=== PATIENT | male | born 1960 | race Caucasian/White ===

== ENCOUNTER 2016-11-26 23:28 | Emergency (ER) | payer OTHER ==
[2016-11-26 23:53] VITALS: BMI 29.8
[2016-11-27] MEDS ORDERED: IBUPROFEN 400 MG TABLET (FP) PO ONE ×2 (01:47→02:43)
[2016-11-27] MEDS ORDERED: OXYCODONE/APAP 5/325MG COMBO TABLET PO ONE ×2 (01:47→18:42)
[2016-11-27 02:50] LABS: MCH 29.2 pg (25.7-33.7); MCHC 34.3 g/dl (32.0-35.9); MEAN CELL VOLUME 85.1 fl (80-96); MEAN PLT VOLUME 8.3 fl (7.5-11.1); PLATELET COUNT 221 K/MM3 (134-434); RDW 13.6 % (11.9-15.9); WHITE BLOOD COUNT 6.2 K/mm3 (4.0-10.0)
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
[2016-11-27 03:30] LABS: URINE APPEARANCE CLEAR; URINE BILIRUBIN NEGATIVE (NEGATIVE); URINE COLOR YELLOW; URINE GLUCOSE (UA) NEGATIVE (NEGATIVE); URINE KETONE NEGATIVE (NEGATIVE); URINE LEUK ESTERASE NEGATIVE (NEGATIVE); URINE NITRITE NEGATIVE (NEGATIVE); URINE PROTEIN NEGATIVE (NEGATIVE); URINE UROBILINOGEN NEGATIVE E.U./dl (0.2-1.0)
[2016-11-27 03:55] LABS: URINE BLOOD 1+ (NEGATIVE)
[2016-11-27 04:08] LABS: URINE HYALINE CAST 1 /lpf; URINE MUCUS RARE; URINE RBC 5 /hpf (0-3); URINE WBC 1 /hpf (3-5)
[2016-11-27 04:15] LABS: CALCIUM 8.9 mg/dL (8.5-10.1); CREATININE 1.2 mg/dL (0.7-1.3)
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
[2016-11-27] MEDS ORDERED: morphine CARPU-JECT 4 MG/1 ML DISP.SYRIN IVPUSH ONE (09:25)
[2016-11-27] MEDS ORDERED: morphine CARPU-JECT 4 MG/1 ML DISP.SYRIN ONE (09:34)
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
[2016-11-27 18:26] VITALS: BP 128/65; PULSE 59; TEMP 96
[2016-11-27] MEDS ORDERED: OXYCODONE/APAP 5/325MG COMBO TABLET ONE (18:46)
== END 2016-11-27 18:48 | disposition home or self-care (01) ==
LOC: JER 23:28
PROC: 3E033NZ Introduction of Analgesics, Hypnotics, Sedatives into Peripheral Vein, Percutaneous Approach (ICD-10-PCS; principal; 2016-11-26)
DX: M54.9 Dorsalgia, unspecified (principal); M24.812 Other specific joint derangements of left shoulder, not elsewhere classified; R10.84 Generalized abdominal pain
CPT/HCPCS: 36415; 71020-TC; 72070-TC; 72100-TC; 72128-TC; 72131-TC; 72146-TC; 72148-TC; 73030-TC-LT; 73630-TC-RT; 74176-TC; 80048; 81003; 81015; 85027; 99282-25

== ENCOUNTER 2017-08-28 07:11 | Day surgery (SDC) | payer OTHER ==
[2017-08-20 11:03] VITALS: BMI 29.9
[2017-08-28] MEDS ORDERED: BUPIVACAINE HCL/EPINEPHRINE/PF 30 ML VIAL IJ ONE ×2 (07:29→11:21)
[2017-08-28] MEDS ORDERED: PROPOFOL 20 ML ONE ×2 (07:36)
[2017-08-28] MEDS ORDERED: ceFAZolin SODIUM 1 GM VIAL ONE ×2 (07:39→11:10)
--- NOTE | 2017-08-28 07:43 | HP ---
History & Physical Update - History History: No Change - Physical Physical: No Change - Assessment Assessment: No Change - Plan Plan: No Change
[2017-08-28] MEDS ORDERED: DEXAMETHASONE SOD PHOSPHATE/PF 10 MG/ML SDV ONE (10:10)
[2017-08-28] MEDS ORDERED: MIDAZOLAM HCL 2 MG/2 ML SINGLE DOSE VIAL ONE (10:10)
[2017-08-28] MEDS ORDERED: ROPIVACAINE HCL 0.5% 30ML VIAL ONE (10:10)
[2017-08-28] MEDS ORDERED: DEXAMETHASONE SOD PHOSPHATE 4 MG/1 ML VIAL ONE ×2 (11:11→12:20)
[2017-08-28] MEDS ORDERED: ONDANSETRON 4 MG/2 ML VIAL ONE ×3 (11:11→12:47)
[2017-08-28] MEDS ORDERED: ONDANSETRON 4 MG/2 ML VIAL IVPUSH PRN (11:31)
[2017-08-28] MEDS ORDERED: oxyCODONE HCL 5 MG TABLET PO PRN ×3 (11:31→12:36)
[2017-08-28] MEDS ORDERED: EPINEPHrine 1:1,000 1 MG/1 ML - 30ML VIAL (INJECTION) ONE (11:44)
[2017-08-28] MEDS ORDERED: LACTATED RINGERS SOLUTION 1,000 ML IV SCH (11:45)
[2017-08-28] MEDS ORDERED: oxyCODONE HCL 10 MG SUSTAINED ACTING TABLET PO ONE (12:36)
--- NOTE | 2017-08-28 12:38 | OP ---
Operative Note - Note: Operative Date: 08/28/17 Pre-Operative Diagnosis: LEft shoulder rotator cuff tear Operation: LEft shoulder arthroscopy, rotator cuff repair Post-Operative Diagnosis: Same as Pre-op Surgeon: Juan Carlos Ziegler Anesthesiologist/PLASTICS FABRICATOR AND ASSEMBLER: Reji Johnson Anesthesia: General Operative Report Dictated: Yes
--- NOTE | 2017-08-28 12:39 | DS ---
Physical Examination Vital Signs: Vital Signs Temperature 98.1 F 08/28/17 07:57 Pulse Rate 74 08/28/17 07:57 Respiratory Rate 17 08/28/17 07:57 Blood Pressure 145/84 08/28/17 07:57 O2 Sat by Pulse Oximetry (%) 97 08/28/17 07:57 Discharge Summary Reason For Visit: ROTATOR CUFF TEAR LEFT SHOUDER Condition: Good - Instructions Diet, Activity, Other Instructions: Post Operative Instructions: Shoulder Arthroscopy Dr Juan Carlos Ziegler 1. Pain following a Shoulder Arthroscopy is variable and can be significant. Some patients will have more pain than others. You have been provided with a prescription for medication that contains a narcotic. You are not allowed to drive while on this medication. Feel free to take medications such as Ibuprofen or Naprosyn in addition to the pain medicine if you do not have any problems with the NSAID class of medications. 2. Apply ice to the shoulder for 15 minutes every hour. You may continue this for as many days as necessary. 3. You may find sleeping on an incline (reclining chair) to be more comfortable for the first few days. 4. You must remain in your sling at all times except when showering. The only exception to this is to allow you to stretch your elbow a few times a day to prevent your hand and forearm from swelling. 5. You are not to use your arm to reach for anything, lift anything or carry anything until instructed otherwise. 6. You may remove the bandages in 48 hours. You may shower at that point. 7. Place band-aids on the sutures after your shower.Do not put any creams or lotions on the incision until after the sutures are removed. 8. Please call the office to schedule a visit to have your sutures removed. 9. If for any reason you believe you may have an infection or are concerned, please feel free to call me. I can be reached through our office number 24 hours a day. 10. Please call our office with any questions; we will review the surgical findings during your post-operative visit. Disposition: HOME - Home Medications Comprehensive Discharge Medication List: Ambulatory Orders Levothyroxine [Synthroid] 50 mcg PO DAILY 07/03/12 Lisinopril [Prinivil] 20 mg PO DAILY 11/26/16
--- NOTE | 2017-08-28 13:13 | SURG ---
Surgery Mental Telepathist Note Mental Telepathist: Kathy Aaron PA-C Date of Service: 08/28/17 Diagnosis: left rotator cuff tear Procedure: left shoulder arthroscopy with rotator cuff repair. I was present for the entirety of the operative procedure. For further detail, please refer to operative report. Visit type - Case Type Case Type: Scheduled Admission - Emergency Emergency Visit: No - New patient This patient is new to me today: Yes Date on this admission: 08/28/17
[2017-08-28] MEDS ORDERED: oxyCODONE HCL 10 MG SUSTAINED ACTING TABLET ONE (14:12)
[2017-08-28 14:26] VITALS: TEMP 98.8
[2017-08-28 14:56] VITALS: BP 138/76; PULSE 74
--- NOTE | 2017-09-04 14:13 | PATH ---
Surgical Pathology Report Patient Name: SHIRIN LONDON Med. Rec. #: [id number] /Age/Gender: 1960 (Age: 56) / M Account: [id number] Location: [facility] AMBULATORY Taken: 08/28/2017 Received: 08/28/2017 Reported: 09/04/2017 Physicians: Juan Carlos Ziegler M.D. Specimen(s) Received SHAVINGS LEFT SHOULDER Clinical History Rotator cuff tear left shoulder Final Diagnosis SHOULDER, LEFT, ARTHROSCOPIC SHAVINGS: CARTILAGE, FIBROSYNOVIAL TISSUE AND SCANT BONE. Electronically Signed Kathy Gong M.D. Gross Description Received in formalin, labeled "shavings left shoulder," is a 2.5 x 2.0 x 0.3 cm. aggregate of butt-yellow soft tissue fragments. A financial sales representative portion is submitted in one cassette. 08/31/201708/31/2017
== END 2017-08-28 14:59 | disposition home or self-care (01) ==
LOC: FASU 07:11
PROVIDERS: ATTEND Orthopaedic Surgery
PROC: 0LB24ZZ Excision of Left Shoulder Tendon, Percutaneous Endoscopic Approach (ICD-10-PCS; principal; 2017-08-28 11:38)
PROC: 0RNK4ZZ Release Left Shoulder Joint, Percutaneous Endoscopic Approach (ICD-10-PCS; 2017-08-28 11:38)
DX: M75.122 Complete rotator cuff tear or rupture of left shoulder, not specified as traumatic (principal)
CPT/HCPCS: 88304-TC; 94760

== ENCOUNTER 2024-07-11 04:20 | Day surgery (SDC) | payer BC ==
[2024-07-07 16:36] VITALS: BMI 29.6
[2024-07-11] MEDS ORDERED: MIDAZOLAM HCL 2 MG/2 ML SINGLE DOSE VIAL ONE (11:49)
[2024-07-11 12:28] VITALS: RESP 18
[2024-07-11 13:16] VITALS: BP 124/70; PULSE 62; TEMP 97.4
== END 2024-07-11 13:10 | disposition home or self-care (01) ==
LOC: JASU-SURG 04:20
PROVIDERS: ATTEND Urology
PROC: 0TF3XZZ Fragmentation in Right Kidney Pelvis, External Approach (ICD-10-PCS; principal; 2024-07-11 12:30)
DX: N20.0 Calculus of kidney (principal)
CPT/HCPCS: 82962